=== PATIENT | female | born 1990 | race Caucasian/White ===

== ENCOUNTER 2017-08-25 19:39 | Emergency (ER) | payer MEDICARE ==
[~2017-08-25] VITALS: Ht 154.9 cm; Wt 86.2 kg
[~2017-08-25 19:39] MED LIST: AMIT10 PO; AMIT50 PO; AZAT50 PO; BCP; BELBUCA300 MCG; BUPR150ER; BUPR150T2 PO; CALCA500CH PO; CEPH500 PO; CIPR500 PO; CO Q10200 MG PO; CYCL10 PO; Cipro500 MG PO; DICL25ER PO; DULO60 PO; FAMO20 PO; FENT25TP TD; FENT75TP TOP; FESOTERODINE; FISH OIL PO; GIANVI 3 MG-0.1 EACH PO; HYDACE5 PO; HYDMOR4; HYDMOR4 PO; HYDR1TAB94 PO; IBUP200 PO; INSUASPI SC; LAMO25 PO; LEVSOD75 PO; LIDO5TP TOP; LIDOCAINE 0.5% IV; LORA1 PO; LORA2 PO; METHYLPHENID; MEXI200 PO; MORP30ER PO; MULVITMIND PO; Norco 5-325 Ta1 EACH PO; Novolog Fl100 UNIT/1; ONDA4ODT MM; OXYACE5T PO; OXYC1TAB11 PO; PARO25 PO; PHENA100 PO; PRAM.5 PO; PRED10 PO; PRED20 PO; PRED5 PO; PREG75 PO; PROM25 PO; PROM25S PR; Pyridium200 MG PO; QUET25 PO; Rituxan10 MG/ML IV; SOLI5 PO; TOLT4 PO; TOVIAZ ER PO; VIT B 12 SL; VITAMIN D PO; YAZ PO; ZOLP5 PO; Zofran Odt4 MG SL; [UNRECOGNIZED DRUG - REMARK]
== END 2017-08-25 21:03 | disposition home or self-care (01) ==
LOC: ER 19:39
DX: M25.552 Pain in left hip (principal); Z91.048 Other nonmedicinal substance allergy status; Z88.7 Allergy status to serum and vaccine; Z79.899 Other long term (current) drug therapy
CPT/HCPCS: 76857; 99284

== ENCOUNTER → 2017-09-17 | Outpatient (CLI) | payer MEDICARE | LOC: LAB 15:47 | DX: N39.0 Urinary tract infection, site not specified (principal) | CPT/HCPCS: 87077; 87086; 87186 ==

== ENCOUNTER → 2022-07-01 | Outpatient (CLI) | payer OTHER ==
[~2022-07-01] MED LIST changes: +Aspir 8181 MG PO; +Humulin N100 UNIT/1 SC; +IBUP800 PO; +MAGNESIUM GLU27.5 M1 PO; +METFORMIN ER1000 M2 PO; +NOVOLIN 70100 UNIT/1 SC; +NOVOLOG100 UNIT/3 SC; +NP THYROID 60 MG PO; +Novolin R100 UNIT/M SC; +Phenergan25 M1; +THERA-D2000 UNIT PO; +THYROID NP; +Verotin-Gr Cap1 EACH PO; +ZINC15 PO
== END | disposition home or self-care (01) ==
LOC: LAB SHORT 09:00 → LAB 09:00
DX: R30.9 Painful micturition, unspecified (principal)
CPT/HCPCS: 87077; 87086; 87186

== ENCOUNTER → 2024-02-03 | Outpatient (CLI) | payer OTHER | LOC: LAB 15:56 → LAB SHORT 15:56 | DX: R31.9 Hematuria, unspecified (principal) | CPT/HCPCS: 87086 ==